=== PATIENT | female | born 1985 | race Caucasian/White ===

== ENCOUNTER 2018-08-19 17:17 | Emergency (ER) | payer OTHER ==
[2018-08-19 17:45] VITALS: BMI 34.5
[2018-08-19 17:46] VITALS: RESP 18; TEMP 98.1; O2SAT 98
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
[2018-08-19 21:01] VITALS: BP 126/78; PULSE 90
--- NOTE | 2018-08-20 10:23 | RAD ---
PROCEDURE: Left Hand Radiographs. HISTORY: pain COMPARISON: None. FINDINGS: BONES: Slightly displaced comminuted oblique fracture traversing the midshaft 4th meta carpal. JOINTS: Normal. No osteoarthritic changes. SOFT TISSUES: Normal. OTHER FINDINGS: None. IMPRESSION: Slightly displaced comminuted oblique fracture traversing the midshaft 4th metacarpal.
== END 2018-08-19 22:51 | disposition home or self-care (01) ==
LOC: ED 17:17
DX: S62.325A Displaced fracture of shaft of fourth metacarpal bone, left hand, initial encounter for closed fracture (principal); V49.9XXA Car occupant (driver) (passenger) injured in unspecified traffic accident, initial encounter